=== PATIENT | male | born 1980 ===

== ENCOUNTER 2019-02-13 19:21 | Inpatient (IN) | payer OTHER ==
[2019-02-13] MEDS ORDERED: Sodium Chloride 0.9% 1,000 ML IV STA ×2 (19:55→22:46)
[2019-02-13] MEDS ORDERED: Iohexol 300 100 ML IJ ONE (20:52)
[2019-02-13] MEDS ORDERED: Sodium Chloride 0.9% 50 ML IV ONE (20:53)
[2019-02-13 20:57] LABS: BASO % 0.2 % (0.0-2.0); EOS % 0.1 % (0.0-4.0); HEMOGLOBIN 15.7 g/dL (12.0-18.0); LYMPH # 0.8 K/uL (1.0-4.3); LYMPH % 5.4 % (20.0-40.0); MEAN CELL VOLUME 88.8 fl (80.0-94.0); MEAN CORPUSCULAR HEMOGLOBIN 30.5 pg (27.0-31.0); MEAN CORPUSCULAR HGB CONC 34.4 g/dL (33.0-37.0); MEAN PLATELET VOLUME 8.1 fl (7.2-11.7); MONO # 0.5 K/uL (0.0-0.8); MONO % 3.5 % (0.0-10.0); NEUT # 12.8 K/uL (1.8-7.0); NEUT % 90.8 % (50.0-75.0); NRBC % 0.1 % (0.0-0.0); PLATELET COUNT 175 K/uL (130-400); RBC 5.13 Mil/uL (4.40-5.90); RED CELL DISTRIBUTION WIDTH 13.3 % (11.5-14.5); WHITE BLOOD COUNT 14.1 K/uL (4.8-10.8)
--- NOTE | 2019-02-13 20:59 | ED PDOC ---
HPI: Abdomen Time Seen by Provider: 02/13/19 19:52 Chief Complaint (Nursing): Abdominal Pain Chief Complaint (Provider): Abdominal Pain History Per: Patient History/Exam Limitations: no limitations Onset/Duration Of Symptoms: Hrs (x 5) Current Symptoms Are (Timing): Still Present Location Of Pain/Discomfort: Suprapubic Quality Of Discomfort: "Pain" Associated Symptoms: Vomiting Additional Complaint(s): 38 year old male with a history of schizophrenia presents to the ED for evaluation of vomiting and lower abdominal pain for the last 5 hours. Patient reports the vomiting began with any triggers. He states that he vomited "more than 30 times". Patient appears very uncomfortable and is unable to sit still in the ED. He takes Fluphenazine and reports compliance with medication. Denies fever and diarrhea. PMD: Dr. Oconnor Past Medical History Reviewed: Historical Data, Nursing Documentation, Vital Signs Vital Signs: Last Vital Signs Temp 98 F 02/13/19 19:26 Pulse 87 02/13/19 19:26 Resp 18 02/13/19 19:26 BP 150/97 H 02/13/19 19:26 Pulse Ox 98 02/13/19 19:26 - Medical History PMH: Schizophrenia - Surgical History Surgical History: No Surg Hx - Family History Family History: States: Unknown Family Hx - Social History Current smoker - smoking cessation education provided: No Alcohol: None Drugs: Denies - Home Medications Home Medications: Ambulatory Orders Medication Instructions Recorded Benztropine [Cogentin] 2 mg PO BID 02/14/19 fluPHENAZine [Prolixin] 10 mg PO DAILY 02/14/19 - Allergies Allergies/Adverse Reactions: Allergies Allergy/AdvReac Type Severity Reaction Status Date / Time aspirin Allergy RASH Verified 02/13/19 19:26 Review of Systems ROS Statement: Except As Marked, All Systems Reviewed And Found Negative Constitutional: Negative for: Fever, Chills Gastrointestinal: Positive for: Vomiting, Abdominal Pain (lower). Negative for: Diarrhea Physical Exam - Reviewed Nursing Documentation Reviewed: Yes Vital Signs Reviewed: Yes - Physical Exam Head Exam: Positive for: ATRAUMATIC, NORMAL INSPECTION, NORMOCEPHALIC Skin: Positive for: Normal Color, Warm, Dry. Negative for: Rash Eye Exam: Positive for: EOMI, Normal appearance, PERRL Neck: Positive for: Normal, Painless ROM, Supple Cardiovascular/Chest: Positive for: Regular Rate, Rhythm. Negative for: Murmur Respiratory: Positive for: Normal Breath Sounds. Negative for: Wheezing, Respiratory Distress Gastrointestinal/Abdominal: Positive for: Normal Exam, Soft. Negative for: Tenderness, Mass, Guarding, Rebound Back: Positive for: Normal Inspection. Negative for: L CVA Tenderness, R CVA Tenderness Extremity: Positive for: Normal ROM (x 4). Negative for: Deformity, Swelling Neurological/Psych: Positive for: Awake, Alert, Normal Tone, Oriented. Negative for: Motor/Sensory Deficits - Laboratory Results Result Diagrams: 02/14/19 05:25 02/14/19 05:25 - ECG O2 Sat by Pulse Oximetry: 98 (RA) Pulse Ox Interpretation: Normal Medical Decision Making Medical Decision Makin:55 Impression: abdominal pain and vomiting Initial Plan: --Alcohol --UDS --CBC --CMP --Lipase --Urine dip --NS IV --Zofran 4 mg IV 22:05 EXAM: CT Abdomen and Pelvis with IV contrast FINDINGS: LUNG BASES: The lung bases appear clear. No pleural effusions are seen. LIVER: Unremarkable. GALLBLADDER AND BILE DUCTS: The gallbladder appears within normal limits. No radioopaque gallstones are seen. No biliary ductal dilatation is evident. PANCREAS: Unremarkable. SPLEEN: Unremarkable. ADRENAL GLANDS: Unremarkable. KIDNEYS, URETERS, AND BLADDER: The kidneys appear within normal limits. There is no hydronephrosis or hydroureter. No urinary calculi are seen. The urinary bladder appeared normal in size and configuration. STOMACH AND BOWEL: Unremarkable appearance of the stomach and bowel. No evidence of bowel obstruction. No evidence suggesting enteritis or colitis. APPENDIX: A 1.2 cm obstructing appendicolith is seen in the lumen of the base of origin of the appendix. The appendix is fluid distended up to 1.4 cm in transverse diameter. Subtle periappendiceal haziness is present. These findings are compatible with acute appendicitis. PERITONEUM: No free fluid. No free air. LYMPH NODES: No lymphadenopathy is evident. REPRODUCTIVE: Unremarkable as visualized. VASCULATURE: No evidence of abdominal aortic aneurysm. BONES: No aggressive appearing osseous lesion. No acute osseous pathology evident. IMPRESSION: 1. Findings compatible with acute appendicitis as described above. 22:[address] Oconnor who accepts patient for admission due to appendicitis and requests Dr. Bolton for surgery. Discussed with surgical corsetier; who will evaluate in ED. Scribe Attestation: Documented by Pricila Cardenas, acting as a scribe Robert Robles MD Provider Scribe Attestation: All medical record entries made by the Scribe were at my direction and personally dictated by me. I have reviewed the chart and agree that the record accurately reflects my personal performance of the history, physical exam, medical decision making, and the department course for this patient. I have also personally directed, reviewed, and agree with the discharge instructions and disposition. Disposition - Clinical Impression Clinical Impression: Acute appendicitis - Patient ED Disposition Is Patient to be Admitted: Yes Discussed With : Jose L Oconnor Counseled Patient/Family Regarding: Studies Performed, Diagnosis - Disposition Disposition Time: 22:49 Condition: FAIR - Pt Status Changed To: Hospital Disposition Of: Inpatient - Admit Certification Admit to Inpatient:: After my assessment, the patient will require hospitalization for at least two midnights. This is because of the severity of symptoms shown, intensity of services needed, and/or the medical risk in this patient being treated as an outpatient. - POA Present On Arrival: None
[2019-02-13 21:11] LABS: ALB/GLOB RATIO 1.3 (1.0-2.1); ALBUMIN 4.3 g/dL (3.5-5.0); ALT/SGPT 37 U/L (21-72); AST/SGOT 41 U/L (17-59); BLOOD UREA NITROGEN 12 mg/dl (9-20); CALCIUM 9.4 mg/dL (8.4-10.2); GFR NON-AFRICAN AMERICAN > 60; LIPASE 71 U/L (23-300)
[2019-02-13 21:23] LABS: BARBITURATES, UR NEGATIVE (NEGATIVE); BENZODIAZEPINES, UR NEGATIVE (NEGATIVE); OPIATES, UR NEGATIVE (NEGATIVE); PHENCYCLIDINE, UR NEGATIVE (NEGATIVE)
[2019-02-13 21:44] LABS: BANDS 2 % (0-2); HYPOCHROMIC SLIGHT; LYMPHOCYTE 7 % (20-50); MONOCYTE 4 % (0-10); NEUTROPHIL 87 % (42-75); PLATELET ESTIMATE NORMAL (NORMAL); TOTAL CELLS COUNTED 100
[2019-02-13] MEDS ORDERED: Piperacillin/Tazobact 3.375 GM in Sodium Chloride 0.9% 100 ML IVPB STA (22:46)
--- NOTE | 2019-02-13 22:50 | CP.PCM.CON ---
<Nelson Aaron - Last Filed: 02/14/19 07:41> History of Present Illness - History of Present Illness History of Present Illness: General Surgery Note for Dr. Bolton Reason for consult: acute appendicitis 38 M with PMH of schizophrenia presents to [facility] for complaint of loer abdominal pain. Patient was seen and evaluated in the ED. Patient states that pain began yesterday evening. He reports sudden onset and never having experienced this in the past. He rates pain as severe starting periumbilical and migrating to RLQ. He reports associated nausea/vomiting x 30, anorexia, and diarrhea. Eatinbg/drinking, Movement and palpation aggravates symptoms while nothing alleviates them. Denies recent illness or sick contacts. Admits to subjective fever/chills. Denies cp, SOB, constipation, numbness/tingling, incontinence, urinary symptoms. PMD: Dr. Oconnor PMH: schizophrenia PSH: denies ALL: ASA Review of Systems - Review of Systems All systems: reviewed and no additional remarkable complaints except (as per HPI) Past Patient History - Past Social History Alcohol: None Drugs: Denies - PSYCHIATRIC Hx Schizophrenia: Yes Meds Allergies/Adverse Reactions: Allergies Allergy/AdvReac Type Severity Reaction Status Date / Time aspirin Allergy RASH Verified 02/13/19 19:26 - Medications Medications: Current Medications Sodium Chloride (Sodium Chloride 0.9%) 1,000 mls @ 1,000 mls/hr IV .Q1H STA Stop: 02/13/19 23:45 Piperacillin Sod/Tazobactam (Sod 3.375 gm/ Sodium Chloride) 100 mls @ 100 mls/hr IVPB STAT STA; Protocol Stop: 02/13/19 23:45 Morphine Sulfate (Morphine) 2 mg IVP ONCE ONE Stop: 02/13/19 22:49 Physical Exam - Constitutional Appears: No Acute Distress - Head Exam Head Exam: ATRAUMATIC, NORMOCEPHALIC - Eye Exam Eye Exam: EOMI, Normal appearance Pupil Exam: PERRL - ENT Exam ENT Exam: Mucous Membranes Moist - Respiratory Exam Respiratory Exam: NORMAL BREATHING PATTERN - Cardiovascular Exam Cardiovascular Exam: REGULAR RHYTHM - GI/Abdominal Exam GI & Abdominal Exam: Normal Bowel Sounds, Soft, Tenderness (RLQ). absent: Distended, Firm, Guarding, Hernia, Rebound, Rigid Additional comments: +rovsing +McBurney's - Rectal Exam Rectal Exam: Deferred - Extremities Exam Extremities exam: Positive for: normal capillary refill, pedal pulses present. Negative for: calf tenderness - Back Exam Back exam: absent: CVA tenderness (L), CVA tenderness (R) - Neurological Exam Neurological exam: Alert, CN II-XII Intact, Oriented x3 - Psychiatric Exam Psychiatric exam: Normal Affect, Normal Mood - Skin Skin Exam: Dry, Intact, Warm Results - Vital Signs Recent Vital Signs: Last Vital Signs Temp 98 F 02/13/19 19:26 Pulse 87 02/13/19 19:26 Resp 18 02/13/19 19:26 BP 150/97 H 02/13/19 19:26 Pulse Ox 98 02/13/19 22:39 - Labs Result Diagrams: 02/14/19 05:25 02/14/19 05:25 Labs: Laboratory Results - last 24 hr 02/13/19 02/13/19 02/13/19 20:50 20:50 21:00 WBC 14.1 H RBC 5.13 Hgb 15.7 Hct 45.5 MCV 88.8 MCH 30.5 MCHC 34.4 RDW 13.3 Plt Count 175 MPV 8.1 Neut % (Auto) 90.8 H Lymph % (Auto) 5.4 L [place] % (Auto) 3.5 Eos % (Auto) 0.1 Baso % (Auto) 0.2 Neut # (Auto) 12.8 H Lymph # (Auto) 0.8 L [place] # (Auto) 0.5 Eos # (Auto) 0.0 Baso # (Auto) 0.0 Neutrophils % (Manual) 87 H Band Neutrophils % 2 Lymphocytes % (Manual) 7 L Monocytes % (Manual) 4 Platelet Estimate Normal Hypochromasia (manual) Slight Sodium 140 Potassium 3.6 Chloride 103 Carbon Dioxide 23 Anion Gap 18 BUN 12 Creatinine 0.9 Est GFR ( Amer) > 60 Est GFR (Non-Af Amer) > 60 Random Glucose 80 Calcium 9.4 Total Bilirubin 0.8 AST 41 ALT 37 Alkaline Phosphatase 71 Total Protein 7.6 Albumin 4.3 Globulin 3.3 Albumin/Globulin Ratio 1.3 Lipase 71 Urine Opiates Screen Negative Urine Methadone Screen Negative Ur Barbiturates Screen Negative Ur Phencyclidine Scrn Negative Ur Amphetamines Screen Negative U Benzodiazepines Scrn Negative U Oth Cocaine Metabols Negative U Cannabinoids Screen Negative Alcohol, Quantitative < 10 Assessment & Plan - Assessment and Plan (Free Text) Assessment: 38M who presents with acute appendicitis Plan: NPO IVF IV abx Pain control Anti-emetics PRN Plan for Laparoscopic appendectomy in OR 4/3 Further recommendations as per Dr. Hoang Aaron PGY2 - Date & Time Date: 02/14/19 Time: 00:30 <Nathaniel Newberry - Last Filed: 02/14/19 10:17> Meds - Medications Medications: Current Medications Lactated Ringer's (Lactated Ringer's) 1,000 mls @ 125 mls/hr IV .Q8H ANTONIA Last Admin: 02/14/19 06:14 Dose: 125 mls/hr Piperacillin Sod/Tazobactam (Sod 3.375 gm/ Sodium Chloride) 100 mls @ 100 mls/hr IVPB Q6 ANTONIA; Protocol Last Admin: 02/14/19 09:15 Dose: 100 mls/hr Ketorolac Tromethamine (Toradol) 30 mg IVP Q4 PRN PRN Reason: Pain, Mild (1-3) Last Admin: 02/14/19 08:30 Dose: 30 mg Morphine Sulfate (Morphine) 2 mg IVP Q4 PRN PRN Reason: Pain, severe (8-10) Last Admin: 02/14/19 06:12 Dose: 2 mg Morphine Sulfate (Morphine) 1 mg IVP Q4 PRN PRN Reason: Pain, moderate (4-7) Ondansetron HCl (Zofran Inj) 4 mg IVP Q6 PRN PRN Reason: Nausea/Vomiting Results - Vital Signs Recent Vital Signs: Last Vital Signs Temp 100.7 F H 02/14/19 08:21 Pulse 114 H 02/14/19 08:21 Resp 20 02/14/19 08:21 BP 123/69 02/14/19 08:21 Pulse Ox 97 02/14/19 08:21 - Labs Result Diagrams: 02/14/19 05:25 02/14/19 05:25 Labs: Laboratory Results - last 24 hr 02/13/19 02/13/19 02/13/19 20:50 20:50 21:00 WBC 14.1 H RBC 5.13 Hgb 15.7 Hct 45.5 MCV 88.8 MCH 30.5 MCHC 34.4 RDW 13.3 Plt Count 175 MPV 8.1 Neut % (Auto) 90.8 H Lymph % (Auto) 5.4 L [place] % (Auto) 3.5 Eos % (Auto) 0.1 Baso % (Auto) 0.2 Neut # (Auto) 12.8 H Lymph # (Auto) 0.8 L [place] # (Auto) 0.5 Eos # (Auto) 0.0 Baso # (Auto) 0.0 Neutrophils % (Manual) 87 H Band Neutrophils % 2 Lymphocytes % (Manual) 7 L Monocytes % (Manual) 4 Platelet Estimate Normal Hypochromasia (manual) Slight PT INR APTT Sodium 140 Potassium 3.6 Chloride 103 Carbon Dioxide 23 Anion Gap 18 BUN 12 Creatinine 0.9 Est GFR ( Amer) > 60 Est GFR (Non-Af Amer) > 60 Random Glucose 80 Calcium 9.4 Phosphorus Magnesium Total Bilirubin 0.8 AST 41 ALT 37 Alkaline Phosphatase 71 Total Protein 7.6 Albumin 4.3 Globulin 3.3 Albumin/Globulin Ratio 1.3 Lipase 71 Urine Opiates Screen Negative Urine Methadone Screen Negative Ur Barbiturates Screen Negative Ur Phencyclidine Scrn Negative Ur Amphetamines Screen Negative U Benzodiazepines Scrn Negative U Oth Cocaine Metabols Negative U Cannabinoids Screen Negative Alcohol, Quantitative < 10 Blood Type Antibody Screen BBK History Checked 02/13/19 02/13/19 02/14/19 23:05 23:14 05:25 WBC 12.4 H RBC 4.93 Hgb 15.0 Hct 44.1 MCV 89.4 MCH 30.4 MCHC 34.0 RDW 13.0 Plt Count 172 MPV 8.4 Neut % (Auto) 86.1 H Lymph % (Auto) 8.3 L [place] % (Auto) 5.5 Eos % (Auto) 0.0 Baso % (Auto) 0.1 Neut # (Auto) 10.6 H Lymph # (Auto) 1.0 [place] # (Auto) 0.7 Eos # (Auto) 0.0 Baso # (Auto) 0.0 Neutrophils % (Manual) Band Neutrophils % Lymphocytes % (Manual) Monocytes % (Manual) Platelet Estimate Hypochromasia (manual) PT 12.7 INR 1.1 APTT 31.9 Sodium Potassium Chloride Carbon Dioxide Anion Gap BUN Creatinine Est GFR ( Amer) Est GFR (Non-Af Amer) Random Glucose Calcium Phosphorus Magnesium Total Bilirubin AST ALT Alkaline Phosphatase Total Protein Albumin Globulin Albumin/Globulin Ratio Lipase Urine Opiates Screen Urine Methadone Screen Ur Barbiturates Screen Ur Phencyclidine Scrn Ur Amphetamines Screen U Benzodiazepines Scrn U Oth Cocaine Metabols U Cannabinoids Screen Alcohol, Quantitative Blood Type A NEGATIVE Antibody Screen Negative BBK History Checked No verified bt 02/14/19 02/14/19 05:25 05:25 WBC RBC Hgb Hct MCV MCH MCHC RDW Plt Count MPV Neut % (Auto) Lymph % (Auto) [place] % (Auto) Eos % (Auto) Baso % (Auto) Neut # (Auto) Lymph # (Auto) [place] # (Auto) Eos # (Auto) Baso # (Auto) Neutrophils % (Manual) Band Neutrophils % Lymphocytes % (Manual) Monocytes % (Manual) Platelet Estimate Hypochromasia (manual) PT 13.3 H INR 1.2 APTT 32.2 Sodium 139 Potassium 3.8 Chloride 102 Carbon Dioxide 26 Anion Gap 15 BUN 13 Creatinine 1.1 Est GFR ( Amer) > 60 Est GFR (Non-Af Amer) > 60 Random Glucose 117 H Calcium 8.8 Phosphorus 5.3 H Magnesium 2.0 Total Bilirubin 1.1 AST 37 ALT 36 Alkaline Phosphatase 58 Total Protein 7.1 Albumin 4.1 Globulin 3.0 Albumin/Globulin Ratio 1.4 Lipase Urine Opiates Screen Urine Methadone Screen Ur Barbiturates Screen Ur Phencyclidine Scrn Ur Amphetamines Screen U Benzodiazepines Scrn U Oth Cocaine Metabols U Cannabinoids Screen Alcohol, Quantitative Blood Type Antibody Screen BBK History Checked Assessment & Plan - Assessment and Plan (Free Text) Plan: 38yo M presents to ED with one day history of right lower abdominal pain with multiple episodes of nausea and vomiting. Pt denies any fever, chills, sob, cp, diarrhea, dysuria. PMHx: Schizophrenia PShx: denies Allergy: NKDA gen: awake, alert, NAD HEENT: nc/at, EOMI, perrla, no scleral icterua resp: no acute respiratory distress abd: soft, ND, +RLQ tenderness, +mcburneys ext: no calf tenderness 38yo M with right lower quadrant pain consistent with acute appendicitis -pain control - IV fluids -Iv abx -NPO -to OR for laparoscopic appendectomy
[2019-02-13] MEDS ORDERED: Piperacillin/Tazobact 3.375 gm Inj IVPB ONE (23:15)
[2019-02-13 23:25] LABS: INR 1.1; PARTIAL THROMBOPLASTIN TIME 31.9 Seconds (25.6-37.1); PROTHROMBIN TIME 12.7 Seconds (9.8-13.1)
[2019-02-14] MEDS: Lactated Ringer's 1,000 ML IV SCH ×6 (00:30→23:53)
[2019-02-14 00:46] VITALS: BMI 29.4
[2019-02-14] MEDS: Piperacillin/Tazobact 3.375 GM in Sodium Chloride 0.9% 100 ML IVPB SCH ×4 (03:13→21:43)
[2019-02-14 06:36] LABS: INR 1.2; PROTHROMBIN TIME 13.3 Seconds (9.8-13.1)
[2019-02-14 06:39] LABS: PARTIAL THROMBOPLASTIN TIME 32.2 Seconds (25.6-37.1)
[2019-02-14 06:42] LABS: BASO % 0.1 % (0.0-2.0); LYMPH % 8.3 % (20.0-40.0); MEAN CELL VOLUME 89.4 fl (80.0-94.0); MEAN CORPUSCULAR HEMOGLOBIN 30.4 pg (27.0-31.0); MEAN PLATELET VOLUME 8.4 fl (7.2-11.7); MONO # 0.7 K/uL (0.0-0.8); MONO % 5.5 % (0.0-10.0); NEUT # 10.6 K/uL (1.8-7.0); NEUT % 86.1 % (50.0-75.0); RBC 4.93 Mil/uL (4.40-5.90); WHITE BLOOD COUNT 12.4 K/uL (4.8-10.8)
[2019-02-14 06:44] LABS: ALB/GLOB RATIO 1.4 (1.0-2.1); ALBUMIN 4.1 g/dL (3.5-5.0); ALT/SGPT 36 U/L (21-72); AST/SGOT 37 U/L (17-59); BLOOD UREA NITROGEN 13 mg/dl (9-20); CALCIUM 8.8 mg/dL (8.4-10.2); GFR NON-AFRICAN AMERICAN > 60
--- NOTE | 2019-02-14 08:09 | CP.PCM.HP ---
History of Present Illness - History of Present Illness History of Present Illness: CC: RLQ pain and vomiting. HPI: 38 y/o Male with a PMH of schizophrenia presented to the ED with RLQ and associated vomiting. CT A/P revealed acute appendicitis. Surgical team is on c onsult. PMH: Schizophrenia. PSH: None. Allergies: Aspirin. Subjective Review of Systems: Reviewed and no additional remarkable complaints except RLQ pain. Objective Vital Signs Stable Appears: Non-toxic, No Acute Distress. Head Exam: NORMAL INSPECTION, normocephalic. Eye Exam: Normal appearance, EOMI, PERRLA. Respiratory Exam: NORMAL BREATHING PATTERN, breath sounds clear to auscultation. Cardiovascular Exam: +S1, +S2. RRR. GI & Abdominal Exam: Soft, tender to mild palpation, non-distended. (+) mcburney's point. Neurological Exam: Alert, Awake, Oriented x3. Psychiatric exam: Normal Affect, Normal Mood, Calm and cooperative. Skin Exam: Normal Color, Warm, Dry. Assessment/Impression/Plan: 1.) Acute Appendicitis -Surgical consult appreciated input. -For Laparoscopic AP surgery. -NPO past midnight. -Zofran for nausea. -Morphine + Toradol for pain. -On Zosyn antibiotics. -EKG revealed sinus tachycardia (likely secondary to pain), otherwise normal. -coags WNL. -Medically stable for surgery at this time. Present on Admission - Present on Admission Any Indicators Present on Admission: No Past Patient History - Past Medical History & Family History Past Medical History?: Yes - Past Social History Alcohol: None Drugs: Denies - CARDIAC Hx Cardiac Disorders: No - PULMONARY Hx Respiratory Disorders: No - NEUROLOGICAL Hx Neurological Disorder: No - HEENT Hx HEENT Problems: No - RENAL Hx Chronic Kidney Disease: No - ENDOCRINE/METABOLIC Hx Endocrine Disorders: No - HEMATOLOGICAL/ONCOLOGICAL Hx Blood Disorders: No - INTEGUMENTARY Hx Dermatological Problems: No - MUSCULOSKELETAL/RHEUMATOLOGICAL Hx Musculoskeletal Disorders: No Hx Falls: Yes - GASTROINTESTINAL Hx Gastrointestinal Disorders: No - GENITOURINARY/GYNECOLOGICAL Hx Genitourinary Disorders: No - PSYCHIATRIC Hx Schizophrenia: Yes - SURGICAL HISTORY Hx Surgeries: Yes Other/Comment: Tumor surgery on left leg - ANESTHESIA Hx Anesthesia: Yes Hx Anesthesia Reactions: No Meds Allergies/Adverse Reactions: Allergies Allergy/AdvReac Type Severity Reaction Status Date / Time aspirin Allergy RASH Verified 04/02/19 19:26 Results - Vital Signs Recent Vital Signs: Last Vital Signs Temp 98.9 F 02/14/19 00:51 Pulse 88 02/14/19 02:56 Resp 20 02/14/19 02:56 BP 127/73 02/14/19 00:51 Pulse Ox 96 02/14/19 02:56 - Labs Result Diagrams: 02/14/19 05:25 02/14/19 05:25 Labs: Laboratory Results - last 24 hr 02/13/19 02/13/19 02/13/19 20:50 20:50 21:00 WBC 14.1 H RBC 5.13 Hgb 15.7 Hct 45.5 MCV 88.8 MCH 30.5 MCHC 34.4 RDW 13.3 Plt Count 175 MPV 8.1 Neut % (Auto) 90.8 H Lymph % (Auto) 5.4 L [place] % (Auto) 3.5 Eos % (Auto) 0.1 Baso % (Auto) 0.2 Neut # (Auto) 12.8 H Lymph # (Auto) 0.8 L [place] # (Auto) 0.5 Eos # (Auto) 0.0 Baso # (Auto) 0.0 Neutrophils % (Manual) 87 H Band Neutrophils % 2 Lymphocytes % (Manual) 7 L Monocytes % (Manual) 4 Platelet Estimate Normal Hypochromasia (manual) Slight PT INR APTT Sodium 140 Potassium 3.6 Chloride 103 Carbon Dioxide 23 Anion Gap 18 BUN 12 Creatinine 0.9 Est GFR ( Amer) > 60 Est GFR (Non-Af Amer) > 60 Random Glucose 80 Calcium 9.4 Phosphorus Magnesium Total Bilirubin 0.8 AST 41 ALT 37 Alkaline Phosphatase 71 Total Protein 7.6 Albumin 4.3 Globulin 3.3 Albumin/Globulin Ratio 1.3 Lipase 71 Urine Opiates Screen Negative Urine Methadone Screen Negative Ur Barbiturates Screen Negative Ur Phencyclidine Scrn Negative Ur Amphetamines Screen Negative U Benzodiazepines Scrn Negative U Oth Cocaine Metabols Negative U Cannabinoids Screen Negative Alcohol, Quantitative < 10 Blood Type Antibody Screen BBK History Checked 02/13/19 02/13/19 02/14/19 23:05 23:14 05:25 WBC 12.4 H RBC 4.93 Hgb 15.0 Hct 44.1 MCV 89.4 MCH 30.4 MCHC 34.0 RDW 13.0 Plt Count 172 MPV 8.4 Neut % (Auto) 86.1 H Lymph % (Auto) 8.3 L [place] % (Auto) 5.5 Eos % (Auto) 0.0 Baso % (Auto) 0.1 Neut # (Auto) 10.6 H Lymph # (Auto) 1.0 [place] # (Auto) 0.7 Eos # (Auto) 0.0 Baso # (Auto) 0.0 Neutrophils % (Manual) Band Neutrophils % Lymphocytes % (Manual) Monocytes % (Manual) Platelet Estimate Hypochromasia (manual) PT 12.7 INR 1.1 APTT 31.9 Sodium Potassium Chloride Carbon Dioxide Anion Gap BUN Creatinine Est GFR ( Amer) Est GFR (Non-Af Amer) Random Glucose Calcium Phosphorus Magnesium Total Bilirubin AST ALT Alkaline Phosphatase Total Protein Albumin Globulin Albumin/Globulin Ratio Lipase Urine Opiates Screen Urine Methadone Screen Ur Barbiturates Screen Ur Phencyclidine Scrn Ur Amphetamines Screen U Benzodiazepines Scrn U Oth Cocaine Metabols U Cannabinoids Screen Alcohol, Quantitative Blood Type A NEGATIVE Antibody Screen Negative BBK History Checked No verified bt 02/14/19 02/14/19 05:25 05:25 WBC RBC Hgb Hct MCV MCH MCHC RDW Plt Count MPV Neut % (Auto) Lymph % (Auto) [place] % (Auto) Eos % (Auto) Baso % (Auto) Neut # (Auto) Lymph # (Auto) [place] # (Auto) Eos # (Auto) Baso # (Auto) Neutrophils % (Manual) Band Neutrophils % Lymphocytes % (Manual) Monocytes % (Manual) Platelet Estimate Hypochromasia (manual) PT 13.3 H INR 1.2 APTT 32.2 Sodium 139 Potassium 3.8 Chloride 102 Carbon Dioxide 26 Anion Gap 15 BUN 13 Creatinine 1.1 Est GFR ( Amer) > 60 Est GFR (Non-Af Amer) > 60 Random Glucose 117 H Calcium 8.8 Phosphorus 5.3 H Magnesium 2.0 Total Bilirubin 1.1 AST 37 ALT 36 Alkaline Phosphatase 58 Total Protein 7.1 Albumin 4.1 Globulin 3.0 Albumin/Globulin Ratio 1.4 Lipase Urine Opiates Screen Urine Methadone Screen Ur Barbiturates Screen Ur Phencyclidine Scrn Ur Amphetamines Screen U Benzodiazepines Scrn U Oth Cocaine Metabols U Cannabinoids Screen Alcohol, Quantitative Blood Type Antibody Screen BBK History Checked Assessment & Plan (1) Acute appendicitis Status: Acute
[2019-02-14] MEDS ORDERED: Succinylcholine 200 mg/10 ml Inj IV ONE (10:47)
[2019-02-14] MEDS ORDERED: Midazolam 2 MG/2 ML VIAL ONE (10:53)
[2019-02-14] MEDS ORDERED: Propofol 10 mg/ml Inj (20 ML) ONE (10:53)
[2019-02-14] MEDS ORDERED: ePHEDrine 50 mg/ml Inj ONE (10:53)
[2019-02-14] MEDS ORDERED: Lidocaine 4% (Laryng-O-Jet) Kit MM ONE (10:54)
[2019-02-14] MEDS ORDERED: Rocuronium 10 mg/ml (5 ml) ONE (10:54)
--- NOTE | 2019-02-14 11:01 | CARD ---
APPROVED REPORT Date of service: 02/14/2019 EKG Measurement Heart [id number] <Conclusion> Sinus tachycardia Otherwise normal ECG
[2019-02-14] MEDS ORDERED: Bupivacaine 0.5% Inj(30mL) ONE (11:14)
[2019-02-14] MEDS ORDERED: Lactated Ringer's 1,000 ML IV ONE ×3 (11:20→14:00)
--- NOTE | 2019-02-14 11:37 | RAD ---
Date of service: 02/14/2019 HISTORY: Pre-op COMPARISON: No prior. TECHNIQUE: 1 view obtained. FINDINGS: LUNGS: No active pulmonary disease. PLEURA: No significant pleural effusion identified, no pneumothorax apparent. CARDIOVASCULAR: No aortic atherosclerotic calcification present. Normal cardiac size. No pulmonary vascular congestion. OSSEOUS STRUCTURES: No significant abnormalities. VISUALIZED UPPER ABDOMEN: Normal. OTHER FINDINGS: None. IMPRESSION: No active disease.
[2019-02-14] MEDS ORDERED: Dexamethasone 4 mg/1 ml ONE (11:57)
[2019-02-14] MEDS ORDERED: Neostigmine 1:1000 (1 mg/ml) Inj ONE (12:09)
--- NOTE | 2019-02-14 12:49 | PCM.SURG1 ---
Surgeon's Initial Post Op Note - Surgeon's Notes Surgeon: Hoang Mental Telepathist: Galen Type of Anesthesia: General Endo Anesthesia Administered By: Jack Pre-Operative Diagnosis: Acute appendicitis Operative Findings: perforated acute appendicitis and purulent peritonitis Post-Operative Diagnosis: Perforated acute appendicitis and purulent peritonitis Operation Performed: Laparoscopic Appendectomy, abdominal washout Specimen/Specimens Removed: appendix Estimated Blood Loss: EBL {In ML}: 5 Blood Products Given: N/A Drains Used: No Drains Post-Op Condition: Good Date of Surgery/Procedure: 02/14/19 Time of Surgery/Procedure: 11:45
[2019-02-14] MEDS ORDERED: Lactated Ringer's 1,000 ML IV SCH (13:00)
[2019-02-14] MEDS ORDERED: HYDROmorphone 0.5 mg/0.5 ml ISec IVP PRN (13:02)
--- NOTE | 2019-02-14 13:59 | CT ---
Date of service: 02/13/2019 PROCEDURE: CT Abdomen and Pelvis with contrast HISTORY: lower abdominal; pain vomiitng COMPARISON: None. TECHNIQUE: Contrast dose: 90 mL of Omni 300 Radiation dose: Total exam DLP = 590.56 mGy-cm. This CT exam was performed using one or more of the following dose reduction techniques: Automated exposure control, adjustment of the mA and/or kV according to patient size, and/or use of iterative reconstruction technique. FINDINGS: LOWER THORAX: Unremarkable. LIVER: Unremarkable. No gross lesion or ductal dilatation. GALLBLADDER AND BILE DUCTS: Unremarkable. PANCREAS: Unremarkable. No gross lesion or ductal dilatation. SPLEEN: Unremarkable. ADRENALS: Unremarkable. No mass. KIDNEYS AND URETERS: Unremarkable. No hydronephrosis. No solid mass. VASCULATURE: Unremarkable. No aortic aneurysm. No aortic atherosclerotic calcification or mural plaque present. BOWEL: Unremarkable. No obstruction. No gross mural thickening. There is evidence of acute appendicitis. The appendix is fluid-filled and dilated to a diameter of 13 mm. There is a 5 mm appendicolith proximally APPENDIX: Normal appendix. PERITONEUM: Unremarkable. No free fluid. No free air. LYMPH NODES: Unremarkable. No enlarged lymph nodes. BLADDER: Unremarkable. REPRODUCTIVE: Unremarkable. BONES: No acute fracture. OTHER FINDINGS: The report concurs with the preliminary [facility] report IMPRESSION: There is evidence of acute appendicitis. The appendix is fluid-filled and dilated to a diameter of 13 mm. There is a 5 mm appendicolith proximally
--- NOTE | 2019-02-14 22:38 | OP ---
PROCEDURE DATE: 02/14/2019 PREOPERATIVE DIAGNOSIS: Acute appendicitis. POSTOPERATIVE DIAGNOSIS: Perforated acute appendicitis with purulent peritonitis. PROCEDURE: Laparoscopic appendectomy, abdominal washout. SURGEON: Jake Bolton MD. BIOMEDICAL ENGINEER: Nelson Aaron DO TYPE OF ANESTHESIA: General endotracheal intubation. ANESTHESIA ADMINISTERED BY: Lorraine Conklin MD. IV FLUIDS: Crystalloids. ESTIMATED BLOOD LOSS: 5 mL. INTRAOPERATIVE FINDINGS: Perforated acute appendicitis and purulent peritonitis. SPECIMEN: Appendix. BRIEF HISTORY: Mr. Cartagena is a pleasant 38-year-old gentleman who presented to the hospital complaining of as per patient one day duration of abdominal pain and upon further investigation on a CAT scan, the patient was found to have elevated white blood cell count to 14 and CAT scan findings significant for acute appendicitis. All the risks and benefits of the procedure were explained to the patient. With the patient having a full understanding of all the risks and benefits involved, informed consent was obtained and the patient was taken to the operating room for above-stated procedure. DESCRIPTION OF PROCEDURE: The patient was brought into the operating room and placed supine on the operating room table. Bilateral Flowtron boots were applied to the patient's lower extremities. After successful induction of anesthesia and successful endotracheal intubation by the anesthesia team, the patient's abdomen was shaved, Rosen catheter was inserted into the patient's urinary bladder and subsequent to that the patient's abdomen was prepped with ChloraPrep stick and draped in a standard surgical fashion. Prior to the beginning of the procedure, a time-out was called in the room and everyone in the room were in agreement. Using a Veress needle, the patient's abdomen was entered at the umbilicus, pneumoperitoneum was achieved with good opening pressures. Once this was accomplished, using an 11-blade scalpel knife, an approximately 5 mm incision was made in the umbilicus in a longitudinal fashion and subsequent to that, 5-mm trocar was introduced into the patient's abdomen. At this point in time, a 5 mm 0 degree scope was introduced into the patient's abdomen and abdomen was inspected. We immediately were able to visualize some purulent material in the right lower quadrant as well as intestine and peritoneal lining appeared to be angry and erythematous. At this point in time, attention was turned to the lower mid abdomen, and using an 11-blade scalpel knife, approximately a 5-mm incision was made in a transverse fashion and subsequent to that another 5-mm trocar was introduced into the patient's abdomen. At this point in time, attention was turned to the left lower quadrant of the patient's abdomen. Using the 11-blade scalpel knife, approximately 1 cm incision was made in transverse fashion and subsequent to that, 12-mm trocar was introduced into the patient's abdomen. At this point in time, using two Cecilio and Geck graspers, appendix was mobilized and there appeared to have perforation in the mid portion of the appendix. At this point in time, using [place] dissector, the window was created between the appendix and the mesoappendix. Subsequent to that appendix was taken right at the base with Endo YEFRI 45-mm blue load stapler. Once the appendix was transected at the base, attention was turned to the mesoappendix. Mesoappendix was taken with torres load 45-mm Endo YEFRI stapler, and at this point in time, EndoCatch bag was introduced into the patient's abdomen. Appendix was placed inside of the bag, and the bag was closed. At this point in time, the patient's right lower quadrant, right upper quadrant and pelvis were copiously irrigated with sterile saline and the fluid was suctioned out until the fluid appeared to be clear. At this point in time, EndoCatch bag and appendix were removed from the patient's abdomen and passed off to the [facility] as a specimen. The 12-mm trocar site was closed with two interrupted 0 Vicryl sutures on UR-5 needle. Subsequent to that, the patient's abdomen was fully desufflated. The rest of the trocars were removed from the patient's abdomen and the skin was closed with 4-0 Monocryl suture in a running subcuticular fashion. At the end of the procedure, incision sites were infiltrated with Marcaine local anesthetic. The patient's abdomen was washed and dried, and Dermabond was applied to the site of the incisions. Rosen catheter was removed from the patient's urinary bladder. Subsequent to that, the patient was successfully extubated by the anesthesia team, [facility], and taken to the recovery room in a stable condition. At the end of the procedure, all instrument counts, needles, and sponges were correct. Jake Bolton MD [facility] # [id number]
[2019-02-15] MEDS: Piperacillin/Tazobact 3.375 GM in Sodium Chloride 0.9% 100 ML IVPB SCH ×4 (03:29→21:51)
[2019-02-15] MEDS: Lactated Ringer's 1,000 ML IV SCH ×5 (05:15→21:15)
[2019-02-15 07:45] LABS: MEAN CELL VOLUME 89.9 fl (80.0-94.0); MEAN CORPUSCULAR HGB CONC 34.5 g/dL (33.0-37.0); RBC 4.2 Mil/uL (4.40-5.90); RED CELL DISTRIBUTION WIDTH 13.3 % (11.5-14.5); WHITE BLOOD COUNT 10.6 K/uL (4.8-10.8)
[2019-02-15 08:11] LABS: ALB/GLOB RATIO 1.3 (1.0-2.1); ALBUMIN 3.5 g/dL (3.5-5.0); ALT/SGPT 33 U/L (21-72); AST/SGOT 28 U/L (17-59); BLOOD UREA NITROGEN 12 mg/dl (9-20); CALCIUM 8.7 mg/dL (8.4-10.2); GFR NON-AFRICAN AMERICAN > 60
--- NOTE | 2019-02-15 08:21 | CP.PCM.PN ---
<Criss Quiles - Last Filed: 02/15/19 08:26> Subjective - Date & Time of Evaluation Date of Evaluation: 02/15/19 Time of Evaluation: 07:10 - Subjective Subjective: General Surgery progress note for Dr. Newberry Patient seen and examined this am at bedside. He states he is feeling well and tolerating his clear liquid diet well. He endorses mild abdominal soreness but otherwise denies OMER, SOB, chest pain, f/c, n/v, stool changes. He states that he is passing gas and has had one small BM. Incisions clean dry and intact. Objective - Vital Signs/Intake and Output Vital Signs (last 24 hours): Temp Pulse Resp BP Pulse Ox 98.7 F 99 H 20 126/84 96 02/15/19 07:52 02/15/19 07:52 02/15/19 07:52 02/15/19 07:52 02/15/19 07:52 - Medications Medications: Current Medications Hydromorphone HCl (Dilaudid) 0.5 mg IVP Q10M PRN PRN Reason: Pain, moderate (4-7) Lactated Ringer's (Lactated Ringer's) 1,000 mls @ 125 mls/hr IV .Q8H ANTONIA Last Admin: 02/14/19 23:53 Dose: Not Given Piperacillin Sod/Tazobactam (Sod 3.375 gm/ Sodium Chloride) 100 mls @ 100 mls/hr IVPB Q6 ANTONIA; Protocol Last Admin: 02/15/19 03:29 Dose: 100 mls/hr Lactated Ringer's (Lactated Ringer's) 1,000 mls @ 125 mls/hr IV .Q8H ANTONIA Last Admin: 02/15/19 05:15 Dose: Not Given Ketorolac Tromethamine (Toradol) 30 mg IVP Q4 PRN PRN Reason: Pain, Mild (1-3) Last Admin: 02/14/19 08:30 Dose: 30 mg Morphine Sulfate (Morphine) 2 mg IVP Q4 PRN PRN Reason: Pain, severe (8-10) Last Admin: 02/15/19 04:59 Dose: 2 mg Morphine Sulfate (Morphine) 1 mg IVP Q4 PRN PRN Reason: Pain, moderate (4-7) Ondansetron HCl (Zofran Inj) 4 mg IVP Q6 PRN PRN Reason: Nausea/Vomiting - Labs Labs: 02/15/19 06:41 02/15/19 06:41 PT 13.3 Seconds (9.8-13.1) H 02/14/19 05:25 INR 1.2 02/14/19 05:25 APTT 32.2 Seconds (25.6-37.1) 02/14/19 05:25 - Constitutional Appears: Well, Non-toxic, No Acute Distress - Head Exam Head Exam: ATRAUMATIC, NORMOCEPHALIC - Eye Exam Eye Exam: EOMI - ENT Exam ENT Exam: Mucous Membranes Moist - Respiratory Exam Respiratory Exam: NORMAL BREATHING PATTERN - Cardiovascular Exam Cardiovascular Exam: REGULAR RHYTHM - GI/Abdominal Exam GI & Abdominal Exam: Soft, Tenderness (mild RLQ, appropriate). absent: Guarding, Rebound - Neurological Exam Neurological Exam: Alert, Awake, Oriented x3 - Psychiatric Exam Psychiatric exam: Normal Affect, Normal Mood - Skin Skin Exam: Dry, Intact, Normal Color, Warm Assessment and Plan - Assessment and Plan (Free Text) Assessment: 38 yr old male s/p Laparoscopic appendectomy of ruptured appendix, POD 1 Plan: - advance diet as tolerated - continue antibiotics - pain control - will discuss with Dr. Rohith Quiles, PGY 1 <Nathaniel Newberry - Last Filed: 02/15/19 11:56> Objective - Vital Signs/Intake and Output Vital Signs (last 24 hours): Temp Pulse Resp BP Pulse Ox 98.7 F 99 H 20 126/84 96 02/15/19 07:52 02/15/19 07:52 02/15/19 07:52 02/15/19 07:52 02/15/19 07:52 - Medications Medications: Current Medications Benztropine Mesylate (Cogentin) 2 mg PO BID ANTONIA Fluphenazine HCl (Prolixin) 10 mg PO HS ANTONIA Hydromorphone HCl (Dilaudid) 0.5 mg IVP Q10M PRN PRN Reason: Pain, moderate (4-7) Lactated Ringer's (Lactated Ringer's) 1,000 mls @ 125 mls/hr IV .Q8H ANTONIA Last Admin: 02/15/19 09:13 Dose: 125 mls/hr Piperacillin Sod/Tazobactam (Sod 3.375 gm/ Sodium Chloride) 100 mls @ 100 mls/hr IVPB Q6 ANTONIA; Protocol Last Admin: 02/15/19 09:15 Dose: 100 mls/hr Lactated Ringer's (Lactated Ringer's) 1,000 mls @ 125 mls/hr IV .Q8H ANTONIA Last Admin: 02/15/19 05:15 Dose: Not Given Ketorolac Tromethamine (Toradol) 30 mg IVP Q4 PRN PRN Reason: Pain, Mild (1-3) Last Admin: 02/14/19 08:30 Dose: 30 mg Morphine Sulfate (Morphine) 2 mg IVP Q4 PRN PRN Reason: Pain, severe (8-10) Last Admin: 02/15/19 09:28 Dose: 2 mg Morphine Sulfate (Morphine) 1 mg IVP Q4 PRN PRN Reason: Pain, moderate (4-7) Ondansetron HCl (Zofran Inj) 4 mg IVP Q6 PRN PRN Reason: Nausea/Vomiting Oxycodone/Acetaminophen (Percocet 5/325 Mg Tab) 1 tab PO Q4 PRN PRN Reason: Pain, moderate (4-7) Stop: 02/18/19 10:15 Oxycodone/Acetaminophen (Percocet 5/325 Mg Tab) 2 tab PO Q4 PRN PRN Reason: Pain, severe (8-10) Stop: 02/18/19 10:18 - Labs Labs: 02/15/19 06:41 02/15/19 06:41 PT 13.3 Seconds (9.8-13.1) H 02/14/19 05:25 INR 1.2 02/14/19 05:25 APTT 32.2 Seconds (25.6-37.1) 02/14/19 05:25 Assessment and Plan - Assessment and Plan (Free Text) Plan: pt resting comfortably, abdominal pain well controlled. TOlerating clears, +BM, Flatus. gen: awake, alert, NAD abd: soft, distended, appropriate tenderness, incisions c/d/i a/p s/p lap appendectomy, perforated -pain control -advance to regular diet -recommend one more day of IV abx due to perforation
[2019-02-15] MEDS ORDERED: Oxycodone/Acetaminophen 5/325 mg Tab PO PRN ×2 (10:14→10:17)
[2019-02-15 16:34] VITALS: RESP 18
[2019-02-16] MEDS: Piperacillin/Tazobact 3.375 GM in Sodium Chloride 0.9% 100 ML IVPB SCH ×2 (04:16→10:31)
[2019-02-16] MEDS: Lactated Ringer's 1,000 ML IV SCH (04:18)
[2019-02-16 08:18] VITALS: BP 122/68; PULSE 68; TEMP 98.1; O2SAT 98
--- NOTE | 2019-02-16 08:56 | CP.PCM.PN ---
<Lorraine Royal - Last Filed: 02/16/19 10:09> Subjective - Date & Time of Evaluation Date of Evaluation: 02/16/19 Time of Evaluation: 08:56 - Subjective Subjective: General Surgery Progress Note: Dr. Newberry 38 year old male patient seen and examined this morning at bedside POD#2 laparoscopic appendectomy with abdominal washout. Patient resting comfortably and in NAD. He reports mild abdominal tenderness, however well controlled with pain medication at this time. Endorses + bm, +flatus. Denies nausea/vomiting/fever/shortness of breath/chest pain. Objective - Vital Signs/Intake and Output Vital Signs (last 24 hours): Temp Pulse Resp BP Pulse Ox 98.1 F 68 18 122/68 98 02/16/19 08:17 02/16/19 08:17 02/16/19 08:17 02/16/19 08:17 02/16/19 08:17 - Medications Medications: Current Medications Acetaminophen (Tylenol 325mg Tab) 650 mg PO Q6 PRN PRN Reason: Fever >100.4 F Last Admin: 02/15/19 18:52 Dose: 650 mg Benztropine Mesylate (Cogentin) 2 mg PO BID ANTONIA Last Admin: 02/15/19 16:55 Dose: 2 mg Fluphenazine HCl (Prolixin) 10 mg PO HS ANTONIA Last Admin: 02/15/19 21:50 Dose: 10 mg Hydromorphone HCl (Dilaudid) 0.5 mg IVP Q10M PRN PRN Reason: Pain, moderate (4-7) Piperacillin Sod/Tazobactam (Sod 3.375 gm/ Sodium Chloride) 100 mls @ 100 mls/hr IVPB Q6 ANTONIA; Protocol Last Admin: 02/16/19 04:16 Dose: 100 mls/hr Lactated Ringer's (Lactated Ringer's) 1,000 mls @ 125 mls/hr IV .Q8H ANTONIA Last Admin: 02/16/19 04:18 Dose: 125 mls/hr Ketorolac Tromethamine (Toradol) 30 mg IVP Q4 PRN PRN Reason: Pain, Mild (1-3) Last Admin: 02/14/19 08:30 Dose: 30 mg Morphine Sulfate (Morphine) 2 mg IVP Q4 PRN PRN Reason: Pain, severe (8-10) Last Admin: 02/15/19 09:28 Dose: 2 mg Morphine Sulfate (Morphine) 1 mg IVP Q4 PRN PRN Reason: Pain, moderate (4-7) Ondansetron HCl (Zofran Inj) 4 mg IVP Q6 PRN PRN Reason: Nausea/Vomiting Oxycodone/Acetaminophen (Percocet 5/325 Mg Tab) 1 tab PO Q4 PRN PRN Reason: Pain, moderate (4-7) Stop: 02/18/19 10:15 Last Admin: 02/15/19 21:58 Dose: 1 tab Oxycodone/Acetaminophen (Percocet 5/325 Mg Tab) 2 tab PO Q4 PRN PRN Reason: Pain, severe (8-10) Stop: 02/18/19 10:18 Last Admin: 02/16/19 04:35 Dose: 2 tab - Labs Labs: 02/15/19 06:41 02/15/19 06:41 PT 13.3 Seconds (9.8-13.1) H 02/14/19 05:25 INR 1.2 02/14/19 05:25 APTT 32.2 Seconds (25.6-37.1) 02/14/19 05:25 - Constitutional Appears: Non-toxic, No Acute Distress - Head Exam Head Exam: ATRAUMATIC, NORMOCEPHALIC - Cardiovascular Exam Cardiovascular Exam: REGULAR RHYTHM - GI/Abdominal Exam GI & Abdominal Exam: Distended, Soft, Tenderness Additional comments: Right lower quadrant tenderness Surgical site skin edges well coapted, no signs of dehiscence appreciated - Extremities Exam Extremities Exam: Normal Capillary Refill. absent: Calf Tenderness - Back Exam Back Exam: absent: CVA tenderness (L), CVA tenderness (R) - Neurological Exam Neurological Exam: Alert, Awake, Oriented x3 - Psychiatric Exam Psychiatric exam: Normal Affect, Normal Mood Assessment and Plan - Assessment and Plan (Free Text) Assessment: 38 year old male patient POD#2 laparoscopic appendectomy with abdominal washout Plan: - Regular diet - C/w IV abx - Rx Augementin - Stable from surgery standpoint - C/w pain control - Further recommendations per Dr. Rohith Royal, PGY1 <Nathaniel Newberry - Last Filed: 02/16/19 11:39> Objective - Vital Signs/Intake and Output Vital Signs (last 24 hours): Temp Pulse Resp BP Pulse Ox 98.1 F 68 18 122/68 98 02/16/19 08:17 02/16/19 08:17 02/16/19 08:17 02/16/19 08:17 02/16/19 08:17 - Medications Medications: Current Medications Acetaminophen (Tylenol 325mg Tab) 650 mg PO Q6 PRN PRN Reason: Fever >100.4 F Last Admin: 02/15/19 18:52 Dose: 650 mg Benztropine Mesylate (Cogentin) 2 mg PO BID ANTONIA Last Admin: 02/16/19 10:31 Dose: 2 mg Fluphenazine HCl (Prolixin) 10 mg PO HS [facility] Last Admin: 02/15/19 21:50 Dose: 10 mg Hydromorphone HCl (Dilaudid) 0.5 mg IVP Q10M PRN PRN Reason: Pain, moderate (4-7) Piperacillin Sod/Tazobactam (Sod 3.375 gm/ Sodium Chloride) 100 mls @ 100 mls/hr IVPB Q6 ANTONIA; Protocol Last Admin: 02/16/19 10:31 Dose: 100 mls/hr Lactated Ringer's (Lactated Ringer's) 1,000 mls @ 125 mls/hr IV .Q8H ANTONIA Last Admin: 02/16/19 04:18 Dose: 125 mls/hr Ketorolac Tromethamine (Toradol) 30 mg IVP Q4 PRN PRN Reason: Pain, Mild (1-3) Last Admin: 02/14/19 08:30 Dose: 30 mg Morphine Sulfate (Morphine) 1 mg IVP Q4 PRN PRN Reason: Pain, moderate (4-7) Ondansetron HCl (Zofran Inj) 4 mg IVP Q6 PRN PRN Reason: Nausea/Vomiting Oxycodone/Acetaminophen (Percocet 5/325 Mg Tab) 1 tab PO Q4 PRN PRN Reason: Pain, moderate (4-7) Stop: 02/18/19 10:15 Last Admin: 02/15/19 21:58 Dose: 1 tab Oxycodone/Acetaminophen (Percocet 5/325 Mg Tab) 2 tab PO Q4 PRN PRN Reason: Pain, severe (8-10) Stop: 02/18/19 10:18 Last Admin: 02/16/19 04:35 Dose: 2 tab - Labs Labs: 02/15/19 06:41 02/15/19 06:41 PT 13.3 Seconds (9.8-13.1) H 02/14/19 05:25 INR 1.2 02/14/19 05:25 APTT 32.2 Seconds (25.6-37.1) 02/14/19 05:25 Assessment and Plan - Assessment and Plan (Free Text) Plan: pt resting comfortably, tolerating diet. abd: soft, mild distention, appropriate incisional tenderness, no peritoneal signs a/p 38yo M s/p laparoscopic appendectomy for perforated appendix -stable for dc on PO abx
--- NOTE | 2019-02-16 14:34 | CP.PCM.PN ---
Subjective - Date & Time of Evaluation Date of Evaluation: 02/15/19 Time of Evaluation: 11:00 - Subjective Subjective: patient seen and examined at bedside. Interim events noted No complaints offered at this time +BM +flatus denies cp/sob/fever/chills. available diagnostic data reviewed Review of Systems All systems: reviewed and no additional remarkable complaints except mentioned above Objective Vital Signs Stable - Constitutional Appears: Non-toxic, No Acute Distress Head Exam: NORMAL INSPECTION Eye Exam: Normal appearance Respiratory Exam: NORMAL BREATHING PATTERN Cardiovascular Exam: +S1, +S2 GI & Abdominal Exam: Soft, incisional sites noted, c/d/i, mild periicisional tenderness Neurological Exam: Alert, Awake Psychiatric exam: Normal Affect, Normal Mood Skin Exam: Normal Color, Warm Assessment and Plan monitor vitals monitor labs Cont meds Cont tx consultants appreciated input pain control prn monitor bms advance diet rest of plan as ordered Assessment and Plan (1) Acute appendicitis Status: Acute
--- NOTE | 2019-02-18 23:03 | CP.PCM.DIS ---
Provider - Provider Date of Admission: 02/13/19 22:44 Attending physician: Jose L Oconnor MD Primary care physician: Jose L Oconnor MD Consults: 02/13/19 22:47 General Surgery Consult Stat Comment: Consulting Provider: Jake Bolton Consulting Physician: Jake Bolton Reason for Consult: acute appendicitis Time Spent in preparation of Discharge (in minutes): 30 Hospital Course - Lab Results Lab Results: Most Recent Lab Values WBC 10.6 K/uL (4.8-10.8) 02/15/19 06:41 RBC 4.20 Mil/uL (4.40-5.90) L 02/15/19 06:41 Hgb 13.0 g/dL (12.0-18.0) D 02/15/19 06:41 Hct 37.7 % (35.0-51.0) 02/15/19 06:41 MCV 89.9 fl (80.0-94.0) 02/15/19 06:41 MCH 31.0 pg (27.0-31.0) 02/15/19 06:41 MCHC 34.5 g/dL (33.0-37.0) 02/15/19 06:41 RDW 13.3 % (11.5-14.5) 02/15/19 06:41 Plt Count 136 K/uL (130-400) 02/15/19 06:41 MPV 8.4 fl (7.2-11.7) 02/14/19 05:25 Neut % (Auto) 86.1 % (50.0-75.0) H 02/14/19 05:25 Lymph % (Auto) 8.3 % (20.0-40.0) L 02/14/19 05:25 Hoke % (Auto) 5.5 % (0.0-10.0) 02/14/19 05:25 Eos % (Auto) 0.0 % (0.0-4.0) 02/14/19 05:25 Baso % (Auto) 0.1 % (0.0-2.0) 02/14/19 05:25 Neut # (Auto) 10.6 K/uL (1.8-7.0) H 02/14/19 05:25 Lymph # (Auto) 1.0 K/uL (1.0-4.3) 02/14/19 05:25 Hoke # (Auto) 0.7 K/uL (0.0-0.8) 02/14/19 05:25 Eos # (Auto) 0.0 K/uL (0.0-0.7) 02/14/19 05:25 Baso # (Auto) 0.0 K/uL (0.0-0.2) 02/14/19 05:25 Neutrophils % (Manual) 87 % (42-75) H 02/13/19 20:50 Band Neutrophils % 2 % (0-2) 02/13/19 20:50 Lymphocytes % (Manual) 7 % (20-50) L 02/13/19 20:50 Monocytes % (Manual) 4 % (0-10) 02/13/19 20:50 Platelet Estimate Normal (NORMAL) 02/13/19 20:50 Hypochromasia (manual) Slight 02/13/19 20:50 PT 13.3 Seconds (9.8-13.1) H 02/14/19 05:25 INR 1.2 02/14/19 05:25 APTT 32.2 Seconds (25.6-37.1) 02/14/19 05:25 Sodium 138 mmol/l (132-148) 02/15/19 06:41 Potassium 4.0 MMOL/L (3.6-5.0) 02/15/19 06:41 Chloride 100 mmol/L (98-107) 02/15/19 06:41 Carbon Dioxide 32 mmol/L (22-30) H 02/15/19 06:41 Anion Gap 10 (10-20) 02/15/19 06:41 BUN 12 mg/dl (9-20) 02/15/19 06:41 Creatinine 1.0 mg/dl (0.8-1.5) 02/15/19 06:41 Est GFR ( Amer) > 60 02/15/19 06:41 Est GFR (Non-Af Amer) > 60 02/15/19 06:41 Random Glucose 106 mg/dL (75-110) 02/15/19 06:41 Calcium 8.7 mg/dL (8.4-10.2) 02/15/19 06:41 Phosphorus 5.3 mg/dl (2.5-4.5) H 02/14/19 05:25 Magnesium 2.0 MG/DL (1.6-2.3) 02/14/19 05:25 Total Bilirubin 1.0 mg/dl (0.2-1.3) 02/15/19 06:41 AST 28 U/L (17-59) 02/15/19 06:41 ALT 33 U/L (21-72) 02/15/19 06:41 Alkaline Phosphatase 46 U/L (38-126) 02/15/19 06:41 Total Protein 6.2 G/DL (6.3-8.2) L 02/15/19 06:41 Albumin 3.5 g/dL (3.5-5.0) 02/15/19 06:41 Globulin 2.7 gm/dL (2.2-3.9) 02/15/19 06:41 Albumin/Globulin Ratio 1.3 (1.0-2.1) 02/15/19 06:41 Lipase 71 U/L (23-300) 02/13/19 20:50 Urine Opiates Screen Negative (NEGATIVE) 02/13/19 21:00 Urine Methadone Screen Negative (NEGATIVE) 02/13/19 21:00 Ur Barbiturates Screen Negative (NEGATIVE) 02/13/19 21:00 Ur Phencyclidine Scrn Negative (NEGATIVE) 02/13/19 21:00 Ur Amphetamines Screen Negative (NEGATIVE) 02/13/19 21:00 U Benzodiazepines Scrn Negative (NEGATIVE) 02/13/19 21:00 U Oth Cocaine Metabols Negative (NEGATIVE) 02/13/19 21:00 U Cannabinoids Screen Negative (NEGATIVE) 02/13/19 21:00 Alcohol, Quantitative < 10 mg/dl (0-10) 02/13/19 20:50 Blood Type A NEGATIVE 02/13/19 23:05 Blood Type Confirm A NEGATIVE 02/14/19 05:25 Antibody Screen Negative 02/13/19 23:05 BBK History Checked No verified bt 02/13/19 23:05 - Hospital Course Hospital Course: This is a 38 y/o male admitted for acute appendicitis. Presented with fever and abdominal pain. WBC was elevated. Intraop noted appendix to be ruptured. He was seen evaluated and operated by Dr Bernal. Post op period was uncomplicated. he was sent home on 2nd day post op. Advised to follow up in my office in 1 week. Discharge Exam - Head Exam Head Exam: ATRAUMATIC, NORMOCEPHALIC - Eye Exam Eye Exam: Normal appearance - Respiratory Exam Respiratory Exam: NORMAL BREATHING PATTERN - Cardiovascular Exam Cardiovascular Exam: REGULAR RHYTHM - GI/Abdominal Exam GI & Abdominal Exam: Normal Bowel Sounds - Neurological Exam Neurological exam: CN II-XII Intact - Psychiatric Exam Psychiatric exam: Normal Mood Discharge Plan - Discharge Medications Prescriptions: Amoxicillin/Clavulanate [Augmentin 875 MG-125 MG] 1 tab PO BID #10 tab oxyCODONE/Acetaminophen [Percocet 5/325 mg Tab] 1 tab PO Q6 #20 tab - Follow Up Plan Condition: FAIR Disposition: HOME/ ROUTINE Instructions: Laceration Repair With Glue (DC), Appendectomy, Laparoscopic Surgery (DC) Additional Instructions: follow up with your primary MD and Dr. salazar 1 week no heavy lifting Referrals: Jake Bolton MD [Staff Provider] - Jose L Oconnor MD [Primary Care Provider] -
== END 2019-02-16 15:30 | disposition home or self-care (01) | DRG 340 ==
LOC: H.ER 19:21 → H.ERHOLD 22:44 → H.MEDSURG1 02-14 00:30
PROVIDERS: ADMIT Family Medicine; ATTEND Family Medicine
PROC: 3E1M38Z Irrigation of Peritoneal Cavity using Irrigating Substance, Percutaneous Approach (ICD-10-PCS; 2019-02-14)
PROC: 0DTJ4ZZ Resection of Appendix, Percutaneous Endoscopic Approach (ICD-10-PCS; principal; 2019-02-14 10:00)
DX: K35.32 Acute appendicitis with perforation, localized peritonitis, and gangrene, without abscess (principal); Z79.899 Other long term (current) drug therapy; F20.9 Schizophrenia, unspecified